=== PATIENT | female | born 1955 | race Caucasian/White ===

== ENCOUNTER → 2023-10-23 14:01 | Outpatient (REF) | payer OTHER, SELFPAY | LOC: WDC 14:01 | PROVIDERS: ATTENDING PHYSICIAN Physician Assistant Medical | DX: Z12.31 Encounter for screening mammogram for malignant neoplasm of breast (principal) | CPT/HCPCS: 77063; 77067 ==

== ENCOUNTER 2024-04-14 13:26 | Emergency (ER) | payer OTHER, SELFPAY ==
[2024-04-14] VITALS (12 sets, daily range): BP systolic 160–213; BP diastolic 68–112; PULSE 73–81; BMI 38.8
[2024-04-14 15:45] LABS: % Basophils 0.9 % (0-2); % Eosinophils 0.4 % (0-6); % Immature Granulocytes 0.6 % (0-0.5); % Lymphocytes 15.8 % (20.5-51.1); % Neutrophils 76.3 % (42.2-75.2); Absolute Basophils 0.1 10^3/uL (0-0.2); Absolute Immature Granulocytes 0.1 10^3/uL (0-0.05); Absolute Lymphocytes 1.5 10^3/uL (1.2-3.4); Absolute Monocytes 0.6 10^3/uL (0.1-0.6); Absolute Neutrophils 7.1 10^3/uL (1.4-6.5); Hematocrit 42.9 % (37.0-47.0); Hemoglobin 13.9 g/dL (12.0-16.0); Mean Corp Hgb Conc. 32.4 g/dL (33.0-37.0); Mean Corpuscular Hgb 28.7 pg (27.0-31.0); Mean Corpuscular Volume 88.6 fL (81.0-99.0); Mean Platelet Volume 10.3 fL (7.4-10.4); Nucleated Red Blood Cells % 0 %; Platelet Count 215 10^3/uL (130-400); Red Blood Cell Count 4.84 10^6/uL (4.20-5.40); Red Cell Dist. Width 13.2 % (11.5-14.5); White Blood Cell Count 9.2 10^3/uL (4.8-10.8)
[2024-04-14] MEDS: DIOVAN 80 MG PO (15:56)
[2024-04-14] MEDS: ANTIVERT 25 MG PO (15:56)
[2024-04-14] MEDS: NSS 1000 IV (15:57)
[2024-04-14 15:58] LABS: ALT (SGPT) 20 U/L (0-35); AST (SGOT) 20 U/L (14-36); Alkaline Phosphatase 109 U/L (38-126); Blood Urea Nitrogen 10 mg/dl (7-17); Calcium 8.9 mg/dl (8.4-10.2); Carbon Dioxide 26 mmol/L (22-30); Chloride 101 mmol/L (98-107); Estimated Creatinine Clearance 96 ml/min; Glucose 192 mg/dl (70-99); Potassium 4.4 mmol/L (3.5-5.1); Sodium 137 mmol/L (135-145); Total Bilirubin 0.7 mg/dl (0.2-1.3); Total Protein 6.8 g/dl (6.3-8.2); eGFR > 60.00
--- NOTE | 2024-04-14 16:19 | ED.GENMED ---
History of Present Illness
General
Chief Complaint: Dizziness
Time Seen by Provider: 04/14/24 15:21
History of Present Illness
History of Present Illness:
69-year-old female with history of diabetes and hypertension presenting to the emergency department for dizziness. Patient reports about 3 weeks ago she contracted the flu. She has still been having some nasal congestion and cough. Today when she
woke up, she went to the bathroom and felt dizzy like everything was spinning. She had an episode of diarrhea and felt that she was maybe she dehydrated. She went back to bed and went to sleep. When she woke up, had another episode of dizziness
which prompted her to come to the hospital. Upon arrival to the hospital, notes that the dizziness has improved. Denies focal weakness or send deficits to her extremities. Again notes that she has had congestion. Denies abdominal pain. Denies
chest pain or difficulty breathing. Denies any fever. Denies additional acute medical complaints.
Past History
Past History
ED Past Medical History: None
ED Past Surgical History: None
Phy Exam
Physical Exam
Physical Exam:
General: Well-appearing, no clinical signs of dehydration, nontoxic and in no acute distress
HEENT: protecting airway, extraocular movements intact, pupils equal and reactive
Neck: appears supple
CV: Normal heart rate, regular rhythm
Resp: No accessory muscle use, no increased work of breathing, lungs clear to auscultation bilaterally
Abd: Soft and non-distended, no tenderness to palpation
Extremities: No deformities, no swelling, no erythema
Neuro: alert, no focal neurologic deficit
: deferred
Rectal: deferred
Psych: Normal affect
Skin: Intact
Course
Orders/Labs/Results
Orders:
Orders
04/14/24 13:33
EKG [Electrocardiogram (*1)] Urgent
Reason for Study: Vertigo / Dizzy
EKG- Treatment ONCE
04/14/24 15:34
Complete Blood Count/With Diff Urgent
Comprehensive Metabolic Panel Urgent
04/14/24 15:44
CT Head W/o Iv Contrast Urgent
Comment:
Reason For Exam: dizziness
Orthostatic VS- Treatment ONCE
0.9% Sodium Chloride 1000 ml [Nss] 1,000 ml IV BOLUS
Meclizine [Antivert] 25 mg PO NOW STA
Valsartan [Diovan] 80 mg PO NOW STA
04/14/24 19:37
Labetalol HCl [Trandate] 20 mg IV NOW STA
Abnormal Lab Results
04/14/24
15:34
MCHC 32.4 L g/dL
(33.0-37.0)
Abs Immat Gran (auto) 0.1 H 10^3/uL
(0-0.05)
Absolute Neuts (auto) 7.1 H 10^3/uL
(1.4-6.5)
Immature Gran % 0.6 H %
(0-0.5)
Neutrophils % 76.3 H %
(42.2-75.2)
Lymphocytes % 15.8 L %
(20.5-51.1)
Creatinine 0.5 L mg/dL
(0.6-1.0)
Glucose 192 H mg/dl
(70-99)
04/14/24 15:34
04/14/24 15:34
Vital Signs
Initial and Last Documented VS:
Initial Vital Signs
Temp Pulse BP Pulse Ox
98.2 F 74 213/99 94
04/14/24 13:31 04/14/24 13:31 04/14/24 13:31 04/14/24 13:31
Last Documented Vital Signs
Temp Pulse Resp BP Pulse Ox
98.2 F 67 27 169/76 91
04/14/24 13:31 04/14/24 20:15 04/14/24 20:15 04/14/24 20:15 04/14/24 20:15
MDM/Problems Addressed
MDM/Problems Addressed:
69-year-old female presenting to the emergency department for episodes of dizziness prior to arrival. Vital signs on arrival are significant for high blood pressure. Patient does note that she did not take her blood pressure medications this
morning.
On exam patient is well-appearing, no acute distress or discomfort. Symptoms appear most consistent with likely vertigo. Suspect likely brought on by preceding viral syndrome. Notes that her symptoms have improved. Does note that it is position,
so will obtain orthostatics. EKG obtained on arrival, nonischemic, no arrhythmia without concern for cardiac pathology. No focal neurologic deficits on exam with lower suspicion for central neurologic process. In the setting of hypertension and
dizziness, however we will obtain CT brain imaging. Will administer patient's blood pressure medication. For symptoms, will administer meclizine and IV fluids and continue to closely monitor.
19:30 - Patient's labs are unremarkable. CT brain negative. Patient notes his dizziness has improved, however did feel dizzy upon standing. Negative orthostatics. She is still very hypertensive, possible component of hypertensive urgency. Will
administer labetalol
20:30 -blood pressure has improved. Patient remains stable. Feel stable for discharge. Will prescribe meclizine for continued suspicion for vertiginous component to symptoms. Regarding her blood pressure, advised following up with her primary
care doctor tomorrow for follow-up and patient's for blood pressure. Return precautions discussed and patient verbalized understanding
*EKG
Interpreted by ED Provider?: Yes
EKG Intrepretation Date: 04/14/24
EKG Intrepretation Time: 16:50
Interpretation: normal
Heart Rate: 75
Rate: normal
Rhythm: sinus
Campbell: normal axis
Interval: normal interval
QRS Pattern: normal QRS
Ischemia: no ischemia
*Critical Care Note
Total Time (30-74mins, 75-104mins- exclusive of procedures): Not Applicable
ED Attending Note
-
Portions of this chart may have been created with voice recognition software.� Occasional wrong word or��sound alike� substitutions may have occurred due to the inherent limitations of voice recognition software.
Discharge Plan
Departure
Prescriptions:
No Action
acetaminophen-codeine 10 ML elixir
15 ml PO Q6HPRN PRN (Reason: pain) Qty: 250 0RF
Referrals:
Jacque Barnes PA-C [Family Provider] -
Interventions
Interventions:
*Risk Screen - Suicide Last Done: 04/14/24 15:21
*General Assessment Last Done: 04/14/24 15:21
*Neglect/Abuse Screening Last Done: 04/14/24 15:21
ED- Fall Risk Assessment Last Done: 04/14/24 15:35
*ED COVID-19 Vaccine History Last Done: 04/14/24 15:21
ED- Neurological Assessment Last Done: 04/14/24 15:33
ED- Cardiac Assessment Last Done: 04/14/24 15:35
ED Swallowing Screen Last Done: 04/14/24 15:40
Discharge Date and Time
Print Language: CZECH
[2024-04-14] MEDS: TRANDATE 20 MG IV (19:48)
== END 2024-04-14 20:53 | disposition home or self-care (01) ==
LOC: EMR 13:26
PROVIDERS: EMERGENCY PHYSICIAN Student in an Organized Health Care Education/Training Program; FAMILY PHYSICIAN Physician Assistant Medical
DX: R42 Dizziness and giddiness (principal); I10 Essential (primary) hypertension; E11.9 Type 2 diabetes mellitus without complications
CPT/HCPCS: 96374; 96361; 99284; 70450; 80053; 85025; 93005

== ENCOUNTER → 2025-01-14 15:36 | Outpatient (REF) | payer OTHER, SELFPAY | LOC: MRI 3T 15:36 | PROVIDERS: ATTENDING PHYSICIAN Physician Assistant Medical | DX: M54.2 Cervicalgia (principal); R42 Dizziness and giddiness | CPT/HCPCS: 70551; 72141 ==